=== PATIENT | female | born 1990 | race Asian ===

== ENCOUNTER 2016-08-04 01:15 | Inpatient (IN) | payer SELFPAY ==
[~2016-08-04] VITALS: Ht 157.5 cm; Wt 63.5 kg
[2016-08-04] MEDS ORDERED: NALBUPHINE HYDROCHLORIDE 10 MG/ML VIAL IVP PRN (03:55)
[2016-08-04] MEDS ORDERED: PROMETHAZINE 25 MG/ML VIAL IVP PRN (03:55)
[2016-08-04] MEDS ORDERED: OXYTOCIN 10 UNITS/ML VIAL IM SCH (03:55)
[2016-08-04] MEDS ORDERED: MISOPROSTOL 25 MCG TAB PO PRN (03:55)
[2016-08-04] MEDS ORDERED: OXYTOCIN 20 UNITS/LR PREMIX 1,000 ML IV SCH (03:55)
[2016-08-04] MEDS ORDERED: MISOPROSTOL 25 MCG TAB ONE (04:29)
[2016-08-04] MEDS: LACTATED RINGERS 1,000 ML IV SCH ×2 (04:49→11:48)
[2016-08-04 04:52] VITALS: BP 118/94
--- NOTE | 2016-08-04 08:13 | NUR ---
PATIENT HAS BEEN SCREENED AND CATEGORIZED LOW NUTRITION RISK. PATIENT WILL BE SEEN WITHIN 7 DAYS OF ADMISSION. 08/10/[address]
[2016-08-04] MEDS ORDERED: ROPIVACAINE 0.2%/NS PREMIX 250 ML EPI ONE (08:36)
[2016-08-04] MEDS ORDERED: OXYTOCIN 20 UNITS/LR PREMIX 1,000 ML IV ONE (08:53)
[2016-08-04] MEDS ORDERED: AMPICILLIN 2,000 MG in NACL 0.9% 100 ML IV SCH ×2 (10:54→12:00)
[2016-08-04] MEDS ORDERED: AMPICILLIN 2,000 MG VIAL ONE (11:09)
[2016-08-04] MEDS ORDERED: AMPICILLIN 1,000 MG in NACL 0.9% 50 ML IV SCH (16:00)
[2016-08-04] MEDS ORDERED: AMPICILLIN 1,000 MG VIAL ONE (16:15)
[2016-08-04] MEDS ORDERED: OXYTOCIN 10 UNITS/ML VIAL ONE (18:43)
[2016-08-04] MEDS ORDERED: IBUPROFEN 800 MG TAB ONE (22:12)
[2016-08-05] MEDS ORDERED: BENZOCAINE/MENTHOL 20%-0.5% 60 GM CAN TP PRN (01:05)
[2016-08-05] MEDS ORDERED: HYDROcodone/APAP 5/325 MG 1 TAB TAB PO PRN ×2 (01:05)
[2016-08-05] MEDS ORDERED: METHYLERGONOVINE 0.2 MG/ML AMP IM PRN (01:05)
[2016-08-05] MEDS ORDERED: WITCH HAZEL 40 PAD PACKAGE TP PRN (01:05)
[2016-08-05] MEDS ORDERED: TEMAZEPAM 15 MG CAP PO PRN (01:05)
[2016-08-05] MEDS ORDERED: oxyCODONE/APAP 5/325 MG 1 TAB TAB PO PRN ×2 (01:05)
[2016-08-05] MEDS: IBUPROFEN 800 MG TAB PO PRN ×2 (08:22→16:45)
[2016-08-05] MEDS ORDERED: DOCUSATE SOD/SENNA 50/8.6 MG 1 TAB PO SCH (21:00)
[2016-08-05] MEDS ORDERED: INFLUENZA VIRUS VACCINE QUAD 0.5 ML SYR IMVAC SCH (22:35)
[2016-08-06] MEDS: IBUPROFEN 800 MG TAB PO PRN (08:40)
== END 2016-08-06 13:10 | disposition home or self-care (01) | DRG 775 ==
LOC: EDSEX 01:15 → MLD 01:15 → MFCC 08-05 02:20
PROVIDERS: ADMIT Obstetrics & Gynecology; ATTEND Obstetrics & Gynecology
PROC: 10E0XZZ Delivery of Products of Conception, External Approach (ICD-10-PCS; principal; 2016-08-04)
PROC: 0W8NXZZ Division of Female Perineum, External Approach (ICD-10-PCS; 2016-08-04)
PROC: 00HU33Z Insertion of Infusion Device into Spinal Canal, Percutaneous Approach (ICD-10-PCS; 2016-08-04)
PROC: 3E0R3CZ (ICD-10-PCS; 2016-08-04)
DX: O69.81X0 Labor and delivery complicated by cord around neck, without compression, not applicable or unspecified (principal); Z3A.40 40 weeks gestation of pregnancy; Z37.0 Single live birth